=== PATIENT | male | born 1995 | race Caucasian/White ===

== ENCOUNTER 2018-09-26 00:34 | Emergency (ER) | payer BC, OTHER ==
[~2018-09-26] VITALS: Ht 177.8 cm; Wt 80.8 kg
[2018-09-26 00:39] VITALS: BP 145/85
[2018-09-26] MEDS ORDERED: ketorolac trometh inj. 60 MG/2 ML VIAL IM ONE (01:00)
== END 2018-09-26 02:13 | disposition home or self-care (01) ==
LOC: ER 00:34
DX: R51 Headache (principal); Z87.891 Personal history of nicotine dependence
CPT/HCPCS: 70450; 96372; 99284; J1885